=== PATIENT | female | born 1955 | race Caucasian/White ===

== ENCOUNTER 2017-05-03 11:42 | Inpatient (IN) | payer MEDICAID ==
[~2017-05-03] VITALS: Ht 170.2 cm; Wt 113.0 kg
[2017-05-03] MEDS ORDERED: HYDR25TA PO (11:50)
[2017-05-03] MEDS ORDERED: AMLO-511 PO (11:50)
[2017-05-03 14:36] LABS: BASOPHILS % (AUTO) 1.1 % (0.0-2.0); EOSINOPHILS % (AUTO) 0.8 % (1.0-6.0); HEMATOCRIT 47.8 % (36-46); LYMPHOCYTES # (AUTO) 1.9 K/uL (1.0-4.8); LYMPHOCYTES % (AUTO) 19.6 % (22.0-44.0); MEAN CORPUSCULAR HEMOGLOBIN 28.5 pg (26.0-34.0); MEAN CORPUSCULAR HGB CONC 33.4 G/dL (31.0-37.0); MEAN CORPUSCULAR VOLUME 85 fL (80-100); MONOCYTES # (AUTO) 0.5 K/uL (0.1-1.0); NEUTROPHILS % (AUTO) 73.5 % (40.0-70.0); PLATELET COUNT (AUTO) 235 K/uL (150-450); RED BLOOD CELL COUNT(AUTO) 5.62 MIL/uL (4.00-5.20); RED CELL DISTRIBUTION WIDTH 14.9 % (11.5-14.5)
[2017-05-03 14:53] LABS: ANION GAP 9 mmol/L (8-16); CARBON DIOXIDE 26 mmol/L (22-29); CHLORIDE 103 mmol/L (98-107); CREATININE 0.75 mg/dL (0.60-1.30); GLUCOSE,RANDOM 119 mg/dL (70-110); POTASSIUM 3.5 mmol/L (3.5-5.1); SODIUM SERUM 138 mmol/L (136-145); UREA NITROGEN, BLOOD 11 mg/dL (7-18)
[2017-05-03 14:54] LABS: CALCIUM, TOTAL 9.3 mg/dL (8.8-10.5); GLOMERULAR FILTR. RATE CALC > 60 mL/min (>60)
[2017-05-03 14:59] LABS: ALANINE AMINOTRANSFERASE 58 U/L (12-78); ALBUMIN 4.3 g/dL (3.4-5.0); ALKALINE PHOSPHATASE 65 U/L (46-116); ASPARTATE AMINOTRANSFERASE 42 U/L (15-37); BILIRUBIN,TOTAL 0.7 mg/dL (0.1-1.0)
[2017-05-03] MEDS ORDERED: HALOPERIDOL 5 MG TABLET PO PRN (16:30)
[2017-05-03] MEDS ORDERED: LORazepam 2 MG TABLET PO PRN (16:30)
[2017-05-03] MEDS ORDERED: ZOLPIDEM TARTRATE 10 MG TABLET PO PRN (16:30)
[2017-05-03 19:15] VITALS: BP 147/92
[2017-05-04 06:53] LABS: CHOL/HDL RATIO 3.1 (3.9-5.7)
[2017-05-04 08:45] VITALS: BP 162/107
[2017-05-04] MEDS: AmLODIPine BESYLATE 5 MG TABLET PO SCH (08:47)
[2017-05-04] MEDS: HYDROCHLOROTHIAZIDE 25 MG TABLET PO SCH (08:47)
[2017-05-04 11:00] VITALS: BP 128/66
[2017-05-04 21:31] VITALS: BP 144/60
[2017-05-05 08:46] VITALS: BP 135/93
[2017-05-05] MEDS: AmLODIPine BESYLATE 5 MG TABLET PO SCH (09:04)
[2017-05-05] MEDS: HYDROCHLOROTHIAZIDE 25 MG TABLET PO SCH (09:04)
== END 2017-05-05 14:30 | disposition home or self-care (01) | DRG 751 ==
LOC: EMS 11:44 → 3EI 17:44
PROVIDERS: ADMIT Psychiatry & Neurology Psychiatry; ATTEND Psychiatry & Neurology Psychiatry
DX: F29 Unspecified psychosis not due to a substance or known physiological condition (principal); I10 Essential (primary) hypertension; F41.9 Anxiety disorder, unspecified; Z88.0 Allergy status to penicillin; Z79.899 Other long term (current) drug therapy
CPT/HCPCS: 99285; G0480